=== PATIENT | female | born 1935 | race Caucasian/White ===

== ENCOUNTER 2024-07-23 03:21 | Inpatient (IN) | payer MEDICARE, SELFPAY ==
[2024-07-23] VITALS (38 sets, daily range): BP systolic 110–150; BP diastolic 61–89; PULSE 59–71; TEMP 36.1–36.9; O2SAT 90–97; BMI 17.5; BMI 17.3
--- NOTE | 2024-07-23 03:29 | ECG_ITS ---
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
--- NOTE | 2024-07-23 03:39 | ED_ITS ---
HPI HPI - General Adult General Chief complaint: Fall Time Seen by Provider: 07/23/24 03:22 Source: patient Mode of arrival: ambulance Limitations: no limitations History of Present Illness HPI narrative: 89-year-old female to the emergency department with chief complaint of multiple falls. Exact circumstances are unknown. She has a history of dementia. No blood thinner use. Patient does not provide any history. Related Data Allergies Allergy/AdvReac Type Severity Reaction Status Date / Time No Known Drug Allergies Allergy Verified 07/23/24 03:24 Opioid HPI Opioid Management Most Recent Opioid Data: Last Pain Scale 2 07/23/24 03:40 07/23/24 Review of Systems ROS Status of ROS 10 or more systems reviewed and unremark able except as noted in history and below Exam Narrative Exam Narrative: Primary Survey Airway Intact Lung sounds clear and equal bilaterally Pulses full and equal to femoral, radial, and dorsalis pedis bilaterally Heart regular rate and rhythm Skin warm, dry, pink GCS 14, confused Movement and sensation intact to all extremities Patient Fully Exposed. Tenderness about the right hip. Secondary Survey General: GCS 14, confused HEENT: Head atraumatic; Facial bones stable; Eyes normal inspection, Pupils round, 4-2mm blt; No evidence of oropharyngeal trauma; No blood in the nares or septal hematoma; Tympanic Membranes intact, no hemotympanum or drainage Neck: Normal inspection; C-collar in place; No tracheal deviation; No JVD Resp: Normal breath sounds, no wheeze or crackles; No chest wall tenderness, crepitus, or subcutaneous emphysema; No visible evidence of chest wall trauma; Chest rise symmetric; No respiratory distress Heart: Heart rate and rhythm regular; Carotid, radial, femoral, dorsalis pedis pulses +2 and equal bilaterally; No Murmurs Abdomen: Soft; Non-tender No ecchymosis or visible wounds to abdominal wall; No distention, guarding, rigidity, or rebound; Pelvis stable, no pain on compression MSK: All major joints with normal ROM. No deformities. No bony tenderness. No tenderness or step-offs to palpation of thoracic or lumbar spine; No ecchymosis or wounds to upper or lower back Neuro: Alert and oriented x1; Sensation intact and symmetric bilaterally; muscle strengths symmetric bilaterally in the upper and lower extremities. Skin: Color normal; No rash; Warm; Dry Constitutional Vital Signs, click to edit/add: Last Vital Signs Temp 98.5 F 07/23/24 03:24 Pulse 64 07/23/24 05:30 Resp 15 07/23/24 05:30 BP 125/71 07/23/24 05:30 Pulse Ox 92 L 07/23/24 05:30 O2 Del Method Room Air 07/23/24 03:24 Course Vital Signs Vital signs: Vital Signs Temperature 98.5 F 07/23/24 03:24 Pulse Rate 64 07/23/24 03:24 Respiratory Rate 14 07/23/24 03:24 Blood Pressure 110/77 07/23/24 03:24 Pulse Oximetry 97 07/23/24 03:24 Oxygen Delivery Method Room Air 07/23/24 03:24 Temperature 98.5 F 07/23/24 03:24 Pulse Rate 64 07/23/24 05:30 Respiratory Rate 15 07/23/24 05:30 Blood Pressure 125/71 07/23/24 05:30 Pulse Oximetry 92 L 07/23/24 05:30 Oxygen Delivery Method Room Air 07/23/24 03:24 Medical Decision Making [facility] Narrative Medical decision making narrative: 89-year-old female to the emergency department with chief complaint of multiple falls. Vital stable, the patient is afebrile. X-ray imaging of the right hip and pelvis is ordered. CT of the head and neck. Metabolic workup. Lab work reviewed and noted. CT head without acute findings, calcified meningioma CT cervical spine without acute findings Care was signed out to Dr. Morgan with results of urinalysis and x-ray imaging pending. Diagnoses: Multiple falls Confusion Medical Records Medical records reviewed: Yes I reviewed the patient's medical records Lab Data Lab results reviewed: Yes I reviewed the patient's lab results Labs: Lab Results 07/23/24 Range/Units 03:33 WBC 10.2 (4.0-11.0) 10^3/uL RBC 4.48 (4.20-5.40) 10^6/uL Hgb 13.6 (12.0-16.0) g/dL Hct 41.3 (36.0-48.0) % MCV 92.2 (81.0-99.0) fL MCH 30.4 (26.7-34.0) pg MCHC 32.9 (29.9-35.2) g/dL RDW 12.7 (11.0-15.0) % Plt Count 144 L (150-450) 10^3/uL MPV 11.4 (9.5-13.5) fL Neut % (Auto) 78.0 H (43.0-75.0) % Lymph % (Auto) 13.3 L (20.5-60.0) % Sumner % (Auto) 6.0 (1.7-12.0) % Eos % (Auto) 0.8 L (0.9-7.0) % Baso % (Auto) 0.3 (0.2-2.0) % Neut # (Auto) 8.0 H (1.4-6.5) 10^3/uL Lymph # (Auto) 1.4 (1.2-3.8) 10^3/uL Sumner # (Auto) 0.6 (0.3-0.8) 10^3/uL Eos # (Auto) 0.1 (0.0-0.7) 10^3/uL Baso # (Auto) 0.0 (0.0-0.1) 10^3/uL Abs Immat Gran (auto) 0.16 H (0.00-0.03) 10^3/uL Imm/Tot Granulo (auto) 1.6 H (0.0-0.5) % PT 11.0 (9.0-11.6) sec INR 1.04 APTT 23.6 (22.3-36.2) sec Sodium 137 (136-145) mmol/L Potassium 3.9 (3.5-5.1) mmol/L Chloride 101 (98-107) mmol/L Carbon Dioxide 31.2 (21.0-32.0) mmol/L Anion Gap 8.7 BUN 17.0 (7.0-18.0) mg/dL Creatinine 0.80 (0.55-1.02) mg/dL Est GFR ( Amer) >60 (>=60 mL/min/1.73m^2) Est GFR (Non-Af Amer) >60 (>=60 mL/min/1.73m^2) BUN/Creatinine Ratio 21.2 Glucose 145 H (74-106) mg/dL Calcium 9.4 (8.5-10.1) mg/dL Total Bilirubin 0.7 (0.2-1.0) mg/dL AST 17 (15-37) U/L ALT 26 (14-59) U/L Alkaline Phosphatase 65 (46-116) U/L Troponin I High Sens 6.4 (4.0-51.3) pg/mL Total Protein 6.4 (6.4-8.2) g/dL Albumin 3.4 (3.4-5.0) g/dL Globulin 3.0 g/dL Albumin/Globulin Ratio 1.1 Ethanol Quant <3 mg/dL Discharge Plan Discharge Chief Complaint: Fall Clinical Impression: Multiple falls, Acute confusion Patient Disposition: Still a Patient Print Language: Venezuelan Referrals: HAYES RICE [Primary Care Provider] - 1 week
[2024-07-23] MEDS: MORPHINE SULFATE 2 MG/ML SYRINGE IV (03:48)
[2024-07-23] MEDS: ONDANSETRON PF 4 MG/2 ML VIAL IV (03:48)
[2024-07-23 04:02] LABS: Basophils Percent Auto 0.3 % (0.2-2.0); Eosinophils Absolute Auto 0.1 10^3/uL (0.0-0.7); Eosinophils Percent Auto 0.8 % (0.9-7.0); Hematocrit 41.3 % (36.0-48.0); Hemoglobin 13.6 g/dL (12.0-16.0); Immature Granulocytes Abs Auto 0.16 10^3/uL (0.00-0.03); Immature Granulocytes Pct Auto 1.6 % (0.0-0.5); Lymphocytes Absolute Auto 1.4 10^3/uL (1.2-3.8); Lymphocytes Percent Auto 13.3 % (20.5-60.0); Mean Corpuscular HGB Conc 32.9 g/dL (29.9-35.2); Mean Corpuscular Hemoglobin 30.4 pg (26.7-34.0); Mean Corpuscular Volume 92.2 fL (81.0-99.0); Mean Platelet Volume 11.4 fL (9.5-13.5); Monocytes Absolute Auto 0.6 10^3/uL (0.3-0.8); Platelet Count 144 10^3/uL (150-450); Red Blood Count 4.48 10^6/uL (4.20-5.40); Red Cell Distribution Width 12.7 % (11.0-15.0); White Blood Count 10.2 10^3/uL (4.0-11.0)
[2024-07-23 04:04] LABS: INR 1.04; Partial Thromboplastin Time 23.6 sec (22.3-36.2)
[2024-07-23 04:09] LABS: Alanine Aminotransferase 26 U/L (14-59); Albumin Globulin Ratio 1.1; Albumin Level 3.4 g/dL (3.4-5.0); Alkaline Phosphatase 65 U/L (46-116); Anion Gap 8.7; Aspartate Amino Transferase 17 U/L (15-37); BUN Creatinine Ratio 21.2; Bilirubin Total 0.7 mg/dL (0.2-1.0); Calcium 9.4 mg/dL (8.5-10.1); Carbon Dioxide 31.2 mmol/L (21.0-32.0); Chloride 101 mmol/L (98-107); Estimated GFR (African America >60 (>=60 mL/min/1.73m^2); Estimated GFR (Non-African Ame >60 (>=60 mL/min/1.73m^2); Glucose 145 mg/dL (74-106); Potassium 3.9 mmol/L (3.5-5.1); Sodium 137 mmol/L (136-145); Total Protein 6.4 g/dL (6.4-8.2); Troponin I High Sensitivity 6.4 pg/mL (4.0-51.3)
[2024-07-23 04:25] LABS: Ethanol <3 mg/dL
--- NOTE | 2024-07-23 10:23 | P.HP_ITS ---
HPI H&P: HPI History of Present Illness Narrative: Patient was a mechanical fall, actually happened twice, and then with the pain being more severe presented to the emergency room, x-rays in the emergency room showed iliac fracture as well as right pubic ramus fracture, patient unable to ambulate secondary to these and will be admitted for workup and treatment of same When I saw patient in the emergency room, she was resting fairly comfortably in bed she is a little bit hard of hearing Opioid HPI Opioid Management Most Recent Pain and Opioid Data: Last Pain Scale 2 07/23/24 03:40 07/23/24 [facility] Medical History (Updated 07/23/24 @ 07:57 by Jim Diaz RN) Anxiety and depression ?F41.9 - Anxiety disorder, unspecified (ICD-10) ?F32.A - Depression, unspecified (ICD-10) Alzheimer disease ?G30.9 - Alzheimer's disease, unspecified (ICD-10) ?F02.80 - Dementia in other diseases classified elsewhere, unspecified severity, without behavioral disturbance, psychotic disturbance, mood disturbance, and anxiety (ICD-10) Meds Home Medications and Allergies Home Medications ?Medication ?Instructions ?Recorded ?Confirmed ?Type donepezil 10 mg tablet 10 mg PO DAILY 07/23/24 07/23/24 History escitalopram oxalate 10 mg tablet 10 mg PO DAILY 07/23/24 07/23/24 History latanoprost 0.005 % eye drops 1 drp ophthalmic (eye) DAILY 07/23/24 07/23/24 History timolol maleate 0.5 % eye drops 1 drp ophthalmic (eye) Q12H 07/23/24 07/23/24 History Allergies Allergy/AdvReac Type Severity Reaction Status Date / Time No Known Drug Allergies Allergy Verified 07/23/24 03:24 Exam Constitutional Vital Signs, click to edit/add: Last Vital Signs Temp 98.5 F 07/23/24 03:24 Pulse 61 07/23/24 09:20 Resp 20 07/23/24 09:20 BP 113/67 07/23/24 09:00 Pulse Ox 90 L 07/23/24 09:20 O2 Del Method Room Air 07/23/24 03:24 Documenting provider has reviewed patient's vital signs: yes Common normals: no apparent distress Chest Common normals: inspection of chest normal Respiratory Common normals: normal respiratory effort and no retractions Cardio Common normals: regular rate and regular rhythm GI Common normals: Normal to inspection, nondistended, normoactive bowel sounds present Extremity Common normals: normal to inspection and no clubbing, cyanosis or edema Results Labs Labs: Short CBC 07/23/24 Range/Units 03:33 WBC 10.2 (4.0-11.0) 10^3/uL Hgb 13.6 (12.0-16.0) g/dL Hct 41.3 (36.0-48.0) % Plt Count 144 L (150-450) 10^3/uL BMP 07/23/24 03:33 Sodium 137 Potassium 3.9 Chloride 101 Carbon Dioxide 31.2 BUN 17.0 Creatinine 0.80 Glucose 145 H Calcium 9.4 Liver Function 07/23/24 Range/Units 03:33 Total Bilirubin 0.7 (0.2-1.0) mg/dL AST 17 (15-37) U/L ALT 26 (14-59) U/L Alkaline Phosphatase 65 (46-116) U/L Albumin 3.4 (3.4-5.0) g/dL Assessment and Plan Assessment and Plan (1) Acute confusion: (2) Multiple falls: Plan Admission findings: Right iliac fracture as well as right pubic ramus fracture, unable to ambulate, admit for workup and evaluation for cause of fall, possible syncope Iliac fracture as well as right pubic ramus fracture-nonweightbearing today, PT and orthopedic evaluation tomorrow 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 Inpatient status
[2024-07-23 10:44] LABS: Magnesium 1.9 mg/dL (1.8-2.4)
[2024-07-23 12:10] LABS: Bilirubin Urine NEGATIVE (NEGATIVE); Blood Urine NEGATIVE (NEGATIVE); Clarity Urine CLEAR (CLEAR); Color Urine YELLOW (YELLOW); Glucose Urine UA NEGATIVE (NEGATIVE); Ketones Urine NEGATIVE (NEGATIVE); Leukocyte Esterase Urine NEGATIVE (NEGATIVE); Nitrite Urine NEGATIVE (NEGATIVE); Protein Urine NEGATIVE (NEG/TRACE); Specific Gravity Urine 1.015 (1.005-1.025); pH Urine 6.5 (5.0-9.0)
[2024-07-23 12:15] LABS: Bacteria Urine TRACE #/HPF (NONE SEEN); RBC Urine 0-2 #/HPF (0-2); WBC Urine 0-2 #/HPF (NONE SEEN)
[2024-07-23 12:16] LABS: Cast Seen? NONE SEEN #/LPF (NONE SEEN); Crystals Seen? None Seen #/HPF (None Seen); Mucus Urine TRACE (NONE SEEN); Squamous Epithelial Cell Urine NONE SEEN #/LPF (NONE/RARE); Urine Culture Indicated ALREADY ORDERED
[2024-07-23] MEDS: TRAMADOL HCL 50 MG TABLET PO (13:23)
[2024-07-23] MEDS: ACETAMINOPHEN 500 MG TABLET 1000 MG PO (13:23)
[2024-07-23] MEDS: TIMOLOL MALEATE 0.5% OP SOL 100 DROPS/5 ML BOTTLE 1 DROP OP (13:26)
--- NOTE | 2024-07-23 14:34 | PC.NURSE ---
Director Of Curriculum has been unable to obtain history. Director Of Curriculum has attempted to call family several times and has left voicemail but no one has returned call. Grandson was at bedside and gave phone numbers but still unable to get any answers.
[2024-07-24] VITALS (10 sets, daily range): BP systolic 123–147; BP diastolic 65–73; PULSE 59–100; TEMP 36.3–36.9; O2SAT 87–93
[2024-07-24 06:40] LABS: Basophils Percent Auto 0.5 % (0.2-2.0); Eosinophils Absolute Auto 0.2 10^3/uL (0.0-0.7); Eosinophils Percent Auto 3.4 % (0.9-7.0); Hematocrit 41.3 % (36.0-48.0); Hemoglobin 13.6 g/dL (12.0-16.0); Immature Granulocytes Abs Auto 0.01 10^3/uL (0.00-0.03); Immature Granulocytes Pct Auto 0.2 % (0.0-0.5); Mean Corpuscular HGB Conc 32.9 g/dL (29.9-35.2); Mean Corpuscular Hemoglobin 30.6 pg (26.7-34.0); Monocytes Absolute Auto 0.5 10^3/uL (0.3-0.8); Neutrophils Absolute Auto 3.8 10^3/uL (1.4-6.5); Neutrophils Percent Auto 57.9 % (43.0-75.0); Platelet Count 129 10^3/uL (150-450); Red Blood Count 4.44 10^6/uL (4.20-5.40); Red Cell Distribution Width 13.1 % (11.0-15.0); White Blood Count 6.5 10^3/uL (4.0-11.0)
[2024-07-24 06:53] LABS: Anion Gap 7.2; BUN Creatinine Ratio 19.1; Calcium 9.2 mg/dL (8.5-10.1); Carbon Dioxide 31.9 mmol/L (21.0-32.0); Chloride 103 mmol/L (98-107); Estimated GFR (African America >60 (>=60 mL/min/1.73m^2); Estimated GFR (Non-African Ame >60 (>=60 mL/min/1.73m^2); Glucose 114 mg/dL (74-106); Potassium 4.1 mmol/L (3.5-5.1); Sodium 138 mmol/L (136-145)
[2024-07-24 07:09] LABS: Creatine Kinase 38 U/L (26-192)
--- NOTE | 2024-07-24 07:11 | P.PN_ITS ---
Progress Note: Subjective Subjective Interval history: Patient awake and alert this morning, no cough denies shortness of breath but is hypoxic Exam Constitutional Vital Signs, click to edit/add: Last Vital Signs Temp 97.8 F 07/24/24 04:00 Pulse 59 L 07/24/24 04:00 Resp 18 07/24/24 04:00 BP 147/67 H 07/24/24 04:00 Pulse Ox 93 L 07/24/24 04:15 O2 Del Method Room Air 07/24/24 04:15 Documenting provider has reviewed patient's vital signs: yes Common normals: no apparent distress Lymph Lymphatic: no lymphadenopathy noted Chest Common normals: inspection of chest normal Respiratory Common normals: normal respiratory effort, no retractions and clear to auscultation bilaterally Cardio Common normals: regular rate and regular rhythm Extremity Common normals: normal to inspection and no clubbing, cyanosis or edema Progress Note: Objective Labs Labs: Short CBC 07/24/24 Range/Units 06:33 WBC 6.5 (4.0-11.0) 10^3/uL Hgb 13.6 (12.0-16.0) g/dL Hct 41.3 (36.0-48.0) % Plt Count 129 L (150-450) 10^3/uL BMP 07/24/24 06:33 Sodium 138 Potassium 4.1 Chloride 103 Carbon Dioxide 31.9 BUN 13.0 Creatinine 0.68 Glucose 114 H Calcium 9.2 Cardiac Enzymes 07/24/24 Range/Units 06:33 Total Creatine Kinase 38 (26-192) U/L Urine 07/23/24 Range/Units 11:50 Urine Color Yellow (YELLOW) Urine Clarity Clear (CLEAR) Urine pH 6.5 (5.0-9.0) Ur Specific [place] 1.015 (1.005-1.025) Urine Protein Negative (NEG/TRACE) mg/dL Urine Glucose (UA) Negative (NEGATIVE) mg/dL Progress Note: A&P Assessment and Plan (1) Acute confusion: (2) Multiple falls: Plan Admission findings: Right iliac fracture as well as right pubic ramus fracture, unable to ambulate, admit for workup and evaluation for cause of fall, possible syncope Iliac fracture as well as right pubic ramus fracture-orthopedics to see today Acute hypoxia-check chest x-ray, start PEP therapy, no cough or no shortness of breath would hold off on CT scans unless hypoxia persist, chest x-ray pending Alzheimer's type dementia-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 Inpatient status ?
--- NOTE | 2024-07-24 08:29 | CM.NOTE ---
Rounds made with Dr. Milan, RN at bedside for vitals. RN reports to Dr. Milan, pt's hypoxia on RA (02 sat-86%). Dr. Milan discussed order to keep sat greater than 90% and Pep device. Orthopedic consult for further recommendations.
[2024-07-24] MEDS: TRAMADOL HCL 50 MG TABLET PO ×3 (08:43→21:53)
[2024-07-24] MEDS: ESCITALOPRAM 10 MG TABLET PO (08:44)
[2024-07-24] MEDS: ACETAMINOPHEN 500 MG TABLET 1000 MG PO ×2 (08:44→16:42)
[2024-07-24] MEDS: PREDNISONE 5 MG TABLET 1.25 MG PO (08:44)
[2024-07-24] MEDS: ENOXAPARIN SODIUM 40 MG/0.4 ML SYRINGE SUBQ (09:26)
--- NOTE | 2024-07-24 10:56 | SWNOTE1 ---
Important Message from Medicare reviewed and discussed with patient.'s son in law. Pt's son in law verbalized understanding and SW signed the form that it was reviewed. Original placed in pt's room and copy placed in patient?s chart.
[2024-07-24] MEDS: TIMOLOL MALEATE 0.5% OP SOL 100 DROPS/5 ML BOTTLE 1 DROP OP ×2 (11:06→22:00)
--- NOTE | 2024-07-24 11:25 | SWNOTE1 ---
Pt has some confusion/Dementia. ESSENCE called and spoke to pt's son in law. Pt lives at home with her daughter and son in law. Per the son in law pt usually uses a 4 prong cane. She is in and out of confusion. Pt has never been to rehab at facility before, just has had in home therapy. ESSENCE spoke to son in law about possibility of pt needing rehab for a short time to get stronger and due to pelvic fractures. ESSENCE explained how Medicare works and needing a qualifying 3 day inpt stay. He voiced understanding. He is going to have pt's daughter call SW to discuss in further detail.
--- NOTE | 2024-07-24 13:29 | PM.ORCN ---
History of Present Illness HPI Consult date: 07/24/24 Requesting physician: Chava Milan Chief complaint: FALL MULTIPLE PELVIC FRACTURES Narrative: Patient is a 89-year-old female with past medical history of Alzheimer's and hypertension that presented to the ED yesterday after apparent multiple falls and patient would not ambulate. CT scan of the pelvis revealed multiple right-sided pelvic fractures. Patient was admitted for altered mental status, pelvic fractures, pain control, and disposition. Ortho was consulted for patient's right inferior pubic rami and iliac wing fractures. Patient unable to provide history, family not at bedside. [facility] Medical History (Updated 07/24/24 @ 13:30 by WILL Lowe) High blood pressure ?I10 - Essential (primary) hypertension (ICD-10) Anxiety and depression ?F41.9 - Anxiety disorder, unspecified (ICD-10) ?F32.A - Depression, unspecified (ICD-10) Alzheimer disease ?G30.9 - Alzheimer's disease, unspecified (ICD-10) ?F02.80 - Dementia in other diseases classified elsewhere, unspecified severity, without behavioral disturbance, psychotic disturbance, mood disturbance, and anxiety (ICD-10) Family History (Updated 07/23/24 @ 19:33 by Kayy Sagastume) Son No problems noted. Father Family history of myocardial infarction Social History (Updated 07/23/24 @ 19:34 by Kayy Sagastume) Within the past year, how often did you have a drink containing alcohol: never Score interpretation: A score less than 3 is consistent with normal alcohol consumption. Smoking status: Former smoker Non-prescribed substance use: denies use Previous occupational history: retired Highest level of school completed/degree received: 5th grade Are you now , , , , never or living with a partner: In a typical week, how many times do you talk on the telephone with family, friends, or neighbors: 3 or more times per week How often do you get together with friends or relatives: 3 or more times per week Little interest or pleasure in doing things: not at all Feeling down, depressed, or hopeless: not at all Feel stressed/tense/nervous/anxious/difficulty sleeping: not at all Do you think of yourself as: straight/heterosexual Gender Identity: female Meds Home Medications and Allergies Home Medications ?Medication ?Instructions ?Recorded ?Confirmed ?Type donepezil 10 mg tablet 10 mg PO .hs 07/23/24 07/24/24 History escitalopram oxalate 10 mg tablet 10 mg PO DAILY 07/23/24 07/23/24 History latanoprost 0.005 % eye drops 1 drp ophthalmic (eye) DAILY 07/23/24 07/23/24 History timolol maleate 0.5 % eye drops 1 drp ophthalmic (eye) Q12H 07/23/24 07/23/24 History calcium 600 mg (as 1 tab PO DAILY 07/24/24 07/24/24 History carbonate)-vitamin D3 5 mcg (200 unit) tablet (Calcium 600 + D(3)) cranberry 500 mg capsule 500 mg PO DAILY 07/24/24 07/24/24 History prednisone 2.5 mg tablet 1.25 mg PO DAILY 07/24/24 07/24/24 History Allergies Allergy/AdvReac Type Severity Reaction Status Date / Time No Known Drug Allergies Allergy Verified 07/23/24 03:24 Exam Narrative Exam Narrative: On exam patient is in no distress, laying in the hospital bed, and alert. Patient oriented to name and but not place, date, or age. Skin is intact, no erythema or warmth to touch. Right thigh and calf compartments soft and compressible. Negative log roll. Full ROM of Right Hip, Knee, Ankle. Wiggles toes. 5/5 strength dorsiflexion/ plantarflexion. Sensation intact distally with light touch. 2+ DP pulses palpated bilaterally. Constitutional Vital Signs, click to edit/add: Last Vital Signs Temp 97.4 F L 07/24/24 11:03 Pulse 63 07/24/24 11:03 Resp 18 07/24/24 11:03 BP 123/66 07/24/24 11:06 Pulse Ox 90 L 07/24/24 11:03 O2 Del Method Room Air 07/24/24 11:03 Results Labs Labs: Abnormal lab results 07/24/24 Range/Units 06:33 Plt Count 129 L (150-450) 10^3/uL Glucose 114 H (74-106) mg/dL H & H 07/23/24 07/24/24 Range/Units 03:33 06:33 Hgb 13.6 13.6 (12.0-16.0) g/dL Hct 41.3 41.3 (36.0-48.0) % Coagulation 07/23/24 Range/Units 03:33 INR 1.04 All other labs normal. Assessment and Plan Assessment and Plan (1) Acute confusion: (2) Multiple falls: (3) Pelvic fracture: Assessment and Plan: Right inferior pubic rami fracture, right iliac wing fracture CT pelvis without contrast was reviewed that reveals an acute oblique fracture involving the mid segment of the right inferior pubic ramus without displacement. - Acute nondisplaced fracture involving the posterior aspect of the right iliac wing involving the medial cortical margin just lateral to the right SI joint. - Recommend protected WBAT with walker - Pain control per Hospitalist - PT/ OT eval-per therapist patient did really well with ambulation up and down the [place], has not had pain medication other than Tylenol this morning - Will treat non operatively, if patient did have issues ambulating with uncontrolled pain could consider transfer to a trauma center for an Iliosacral screw Discussed with my Supervising Physician, Dr Barker. Qualifiers: Encounter type: initial encounter Fracture alignment: without disruption of pelvic ring Fracture type: closed Pelvic bone location: multiple parts Qualified Code(s): S32.82XA - Multiple fractures of pelvis without disruption of pelvic ring, initial encounter for closed fracture
--- NOTE | 2024-07-24 15:05 | SWNOTE1 ---
Pt did work with therapy and did well, still recomemending SNF due to pt's cognition. SW called pt's son in law, he was just arriving to hospital. SW to talk to him in room.
--- NOTE | 2024-07-24 15:41 | SWNOTE1 ---
ESSENCE had a lengthy discussion with pt, pt's daughter, and pt's son in law in regards to pt's discharge plans. There residential goal is to take pt back home. They do want pt to go to short term rehab to get stronger. Pt's son in law voiced that his concern with her going home now is that she may have went 40 feet with therapy, but tomorrow she may only go 2 feet. Concerns about her falling again. ESSENCE did advise family that at the facilities they are not allowed to have bed alarms as that is considered a restraint. They voiced understanding. SW also advised them that a fall could happen anywhere. They voiced understanding. SW did let them know SW is not sure how long she will be skilled for, whether it is a few days or 3 weeks. It will depend on when pt meets her goals. They voiced understanding. They informed pt that she will need to go to rehab and go to the gym to work out everyday to get stronger. Pt smiled and laughed. They did ask if pt could get rehab here at hospital. ESSENCE advised that we don't have swing beds here and that she will get therapy until she transitions to SNF. They voiced understanding. They would like SW to look in to [facility]. They are going to drive by [facility] this evening and then SW will touch base with them in the morning. ESSENCE sent referral to [facility].
[2024-07-24] MEDS: LATANOPROST 0.005% 2.5 ML BOTTLE 1 DROP OP (21:53)
[2024-07-24] MEDS: DONEPEZIL HCL 10 MG TABLET PO (21:53)
[2024-07-25] VITALS (8 sets, daily range): BP systolic 131–168; BP diastolic 79–87; PULSE 55–78; TEMP 36.2–36.9; O2SAT 91–95
[2024-07-25 03:26] LABS: Bilirubin Urine NEGATIVE (NEGATIVE); Blood Urine TRACE-I (NEGATIVE); Clarity Urine CLEAR (CLEAR); Color Urine LT. YELLOW (YELLOW); Glucose Urine UA NEGATIVE (NEGATIVE); Ketones Urine NEGATIVE (NEGATIVE); Leukocyte Esterase Urine TRACE (NEGATIVE); Nitrite Urine NEGATIVE (NEGATIVE); Protein Urine NEGATIVE (NEG/TRACE); Specific Gravity Urine 1.015 (1.005-1.025); Urobilinogen Urine 0.2 EU/dL (0.2-1.0); pH Urine 5.5 (5.0-9.0)
[2024-07-25] MEDS: TRAMADOL HCL 50 MG TABLET PO (04:39)
--- NOTE | 2024-07-25 06:31 | P.PN_ITS ---
Progress Note: Subjective Subjective Interval history: No plaints this morning, more awake than yesterday Exam Constitutional Vital Signs, click to edit/add: Last Vital Signs Temp 97.5 F L 07/25/24 04:00 Pulse 55 L 07/25/24 04:00 Resp 17 07/25/24 04:00 BP 160/80 H 07/25/24 04:00 Pulse Ox 93 L 07/25/24 04:00 O2 Del Method Room Air 07/25/24 04:00 Documenting provider has reviewed patient's vital signs: yes Common normals: no apparent distress Lymph Lymphatic: no lymphadenopathy noted Chest Common normals: inspection of chest normal Respiratory Common normals: normal respiratory effort and no retractions Cardio Common normals: regular rate, regular rhythm and no murmurs Extremity Common normals: normal to inspection and no clubbing, cyanosis or edema Progress Note: Objective Labs Labs: Short CBC 07/24/24 Range/Units 06:33 WBC 6.5 (4.0-11.0) 10^3/uL Hgb 13.6 (12.0-16.0) g/dL Hct 41.3 (36.0-48.0) % Plt Count 129 L (150-450) 10^3/uL BMP 07/24/24 06:33 Sodium 138 Potassium 4.1 Chloride 103 Carbon Dioxide 31.9 BUN 13.0 Creatinine 0.68 Glucose 114 H Calcium 9.2 Cardiac Enzymes 07/24/24 Range/Units 06:33 Total Creatine Kinase 38 (26-192) U/L Urine 07/25/24 Range/Units 03:00 Urine Color Lt. yellow (YELLOW) Urine Clarity Clear (CLEAR) Urine pH 5.5 (5.0-9.0) Ur Specific [place] 1.015 (1.005-1.025) Urine Protein Negative (NEG/TRACE) mg/dL Urine Glucose (UA) Negative (NEGATIVE) mg/dL Progress Note: A&P Assessment and Plan (1) Acute confusion: (2) Multiple falls: (3) Pelvic fracture: Qualifiers: Encounter type: initial encounter Fracture alignment: without disruption of pelvic ring Fracture type: closed Pelvic bone location: multiple parts Qualified Code(s): S32.82XA - Multiple fractures of pelvis without disruption of pelvic ring, initial encounter for closed fracture Plan Admission findings: Right iliac fracture as well as right pubic ramus fracture, unable to ambulate, admit for workup and evaluation for cause of fall, possible syncope Iliac fracture as well as right pubic ramus fracture-able to do weightbearing as tolerated, patient can to be very unsteady with gait secondary to pain will require rehabilitation Acute hypoxia-chest x-ray clear, no cough or shortness of breath today Alzheimer's type dementia-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 Inpatient status ?
--- NOTE | 2024-07-25 08:44 | CM.NOTE ---
Rounds made with Dr. Milan, pt will discharge to skilled facility when medically stable. Referral has been sent to [facility].
[2024-07-25] MEDS: ESCITALOPRAM 10 MG TABLET PO (09:59)
[2024-07-25] MEDS: PREDNISONE 5 MG TABLET 1.25 MG PO (09:59)
[2024-07-25] MEDS: ENOXAPARIN SODIUM 40 MG/0.4 ML SYRINGE SUBQ (10:03)
--- NOTE | 2024-07-25 10:19 | SWNOTE1 ---
SW called pt's son in law to discuss discharge planning. SW let him know that the [facility] does have an opening. He voiced they did not have a chance to drive by [facility] as his was not feeling well. They did go past [facility] and at this time they want to stick with [facility]. He stated they will be here in about an hour and half. SW to stop in room once they arrive to see if they have further questions.
--- NOTE | 2024-07-25 10:46 | PT.DAILY ---
Physical Therapy Daily Note PT Daily Note/Assess Start: 07/25/24 10:40 Freq: Status: Active Protocol: Document 07/25/24 10:05 INDIRA (Rec: 07/25/24 10:46 INDIRA [id number]) Physical Therapy Daily Note/Assessment Time In/Time Out Time In 10:05 Time Out 10:21 Subjective Subjective Patient is very pleasant, confused and max verbal cues to keep on task. Therapeutic Exercise Time Therapeutic Exercise 5 Minutes (minutes) Therapeutic Exercise 0 Units Therapeutic Exercise Treatment Therapeutic Exercise Seated exercises B LE all planes as patient follows Treatment directions. Therapeutic Activity Time Therapeutic Activity 11 Minutes (minutes) Therapeutic Activity 1 Units Therapeutic Activity Treatment Bed Mobility Ability Standby Assistance Chair Transfer Minimum Assist Ability Therapeutic Activity Patient requires assistance due to poor safety Comments awareness. WBAT with RW but patient does not want to use RW and keeps trying to put it off to side, max verbal cues to use RW and assistance to keep RW in front of her. Gait 25' today and limited more due to poor safety awareness with using RW. Total Physical Therapy Time Total Therapy 16 Minutes Total Physical 1 Therapy Units Summary Daily Note Summary Poor safety with use of RW, requires mod assistance to properly use RW during gait. Patient is antalgic with gait pattern and rubs hip once complaining of pain prior to sitting in chair. Patient in chair with alarm placed, table in front of her, call light in reach and all needs met.
[2024-07-25] MEDS: TIMOLOL MALEATE 0.5% OP SOL 100 DROPS/5 ML BOTTLE 1 DROP OP ×2 (11:57→22:10)
--- NOTE | 2024-07-25 14:51 | SWNOTE1 ---
SW stopped in to speak with daughter and son in law. They voiced they just stopped over at [facility] and did a tour and loved it. Pt's room will be next to nurses station. SW did ask them about transport. They did not feel by car would be safest due to fractures and [facility] does not have transport. Pt's daughter and son in law agree for trips to transport. They requested early afternoon as pt's daughter has apt at 11:30 in [place]. SW to call trips. SW called and set up trips for 1-1:30. SW notified nurse, pt's daughter and son in law, and [facility] of time.
[2024-07-25] MEDS: LATANOPROST 0.005% 2.5 ML BOTTLE 1 DROP OP (22:10)
[2024-07-25] MEDS: DONEPEZIL HCL 10 MG TABLET PO (22:10)
[2024-07-26] VITALS: BP 160/74; PULSE 62; TEMP 37.1; O2SAT 91
[2024-07-26 03:24] VITALS: BP 160/79; PULSE 65; TEMP 37; O2SAT 90
--- NOTE | 2024-07-26 07:19 | P.DS_ITS ---
DS: Providers Provider Date of admission: 07/23/24 10:31 Primary care physician: HAYES RICE Consults: 07/23/24 10:30 Occupational Therapy Eval and Treat Routine Reason for consultation: Only if needed for Rehab Has provider been notified: No Physical Therapy Eval and Treat Routine Reason for consultation: Eval and Treat Has provider been notified: No 07/23/24 10:34 Consult to Orthopedic Surgery Routine Consulting Provider: Jacob Ferrara Reason For Exam: Reason for consultation: iliac and pubic ramus fx Has provider been notified: No DS: Diagnosis Discharge Diagnosis (1) Acute confusion: (2) Multiple falls: (3) Pelvic fracture: Qualifiers: Encounter type: initial encounter Fracture alignment: without disruption of pelvic ring Fracture type: closed Pelvic bone location: multiple parts Qualified Code(s): S32.82XA - Multiple fractures of pelvis without disruption of pelvic ring, initial encounter for closed fracture Plan Admission findings: Right iliac fracture as well as right pubic ramus fracture, unable to ambulate, admit for workup and evaluation for cause of fall, possible syncope Iliac fracture as well as right pubic ramus fracture-able to do weightbearing as tolerated, patient can to be very unsteady with gait secondary to pain will require rehabilitation Acute hypoxia-chest x-ray clear, no cough or shortness of breath today Alzheimer's type dementia-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 Inpatient status ? ? DS: Summary Hospital Course Hospital Course: Patient sustained a fall resulting in pubic ramus fracture and iliac crest fracture, workup for syncope for the cause of the fall was unremarkable, she did have episode of hypoxia requiring supplemental oxygen but that is improved and may be related to pain medications at this point she is medically stable for discharge to rehab. Medications see list. Follow-up with PCP postdischarge from rehab Status at Discharge Overall status at discharge: patient is not back to baseline Time Spent with Patient Time attestation: Total time spent providing and/or coordinating discharge services: Time spent: greater than 30 minutes Exam Constitutional Vital Signs, click to edit/add: Last Vital Signs Temp 98.6 F 07/26/24 03:24 Pulse 65 07/26/24 03:24 Resp 20 07/26/24 03:24 BP 160/79 H 07/26/24 03:24 Pulse Ox 90 L 07/26/24 03:24 O2 Del Method Room Air 07/26/24 03:24 Documenting provider has reviewed patient's vital signs: yes Common normals: no apparent distress Lymph Lymphatic: no lymphadenopathy noted Chest Common normals: inspection of chest normal Respiratory Common normals: normal respiratory effort and no retractions Cardio Common normals: regular rate, regular rhythm and no murmurs Extremity Common normals: normal to inspection and no clubbing, cyanosis or edema Discharge Plan Discharge Disposition: Xfer [facility] Discharge Medications: New tramadol 50 mg tablet 50 mg PO Q6H PRN (Reason: pain) Qty: 30 2RF Continued donepezil 10 mg tablet 10 mg PO .hs escitalopram oxalate 10 mg tablet 10 mg PO DAILY latanoprost 0.005 % drops 1 drp OPHTHALMIC (EYE) DAILY timolol maleate 0.5 % drops 1 drp OPHTHALMIC (EYE) Q12H prednisone 2.5 mg tablet 1.25 mg PO DAILY calcium carbonate-vitamin D3 [Calcium 600 + D(3)] 600 mg-5 mcg (200 unit) tablet 1 tab PO DAILY cranberry 500 mg capsule 500 mg PO DAILY Rx Instructions: administer with a meal Print Language: Yoruba [employer] Wheel Alignment Specialist/Constitutional Law Professor Instructions: Discharge to [facility] skilled Forms: Portal Instructions Discharge Date/Time: 07/26/24 12:55 Discharge Location: [facility]
[2024-07-26 08:19] VITALS: PULSE 65
[2024-07-26 08:30] VITALS: BP 154/76; PULSE 65; TEMP 37.2; O2SAT 95
[2024-07-26] MEDS: ENOXAPARIN SODIUM 40 MG/0.4 ML SYRINGE SUBQ (08:49)
[2024-07-26] MEDS: PREDNISONE 5 MG TABLET 1.25 MG PO (08:49)
[2024-07-26] MEDS: ACETAMINOPHEN 500 MG TABLET 1000 MG PO (08:49)
[2024-07-26] MEDS: TRAMADOL HCL 50 MG TABLET PO (08:50)
[2024-07-26] MEDS: ESCITALOPRAM 10 MG TABLET PO (08:50)
--- NOTE | 2024-07-26 08:58 | CM.NOTE ---
Rounds made with Dr. Milan, pt will discharge to [facility] today for skilled therapy.
--- NOTE | 2024-07-26 10:21 | SWNOTE1 ---
SW called [facility] to see if daughter could ride along due to pt's confusion, [facility] is alright with this. SW sent dc med rec and updated vitals to [facility]. SW completed HENS. SW took packet to the floor. [facility] is set for 1-1:30, pt is going to [facility] skilled.
[2024-07-26 10:57] LABS: Glucometer 167 mg/dL (74-106)
[2024-07-26 11:03] VITALS: BP 154/76; PULSE 59; TEMP 36.9; O2SAT 90
[2024-07-26] MEDS: TIMOLOL MALEATE 0.5% OP SOL 100 DROPS/5 ML BOTTLE 1 DROP OP (11:03)
--- NOTE | 2024-07-26 11:41 | PT.DAILY ---
Physical Therapy Daily Note PT Daily Note/Assess Start: 07/25/24 10:40 Freq: Status: Active Protocol: Document 07/26/24 11:35 NELSON (Rec: 07/26/24 11:41 NELSON [id number]) Physical Therapy Daily Note/Assessment Time In/Time Out Time In 11:25 Time Out 11:34 Pain In Pain N/A Pain Out Pain N/A Subjective Subjective Pt supine upon arrival. Pleasantly confused. Planned dc 1300 to [facility]. Therapeutic Activity Time Therapeutic Activity 8 Minutes (minutes) Therapeutic Activity 1 Units Therapeutic Activity Treatment Bed Mobility Ability Independent Chair Transfer Standby Assistance Ability Therapeutic Activity Supine>sit IND. Sit>stand SBA for safety. Pt amb with Comments RW around room 45' with constant cuing for walker safety/proper negotiation. Pt needs outside assistance to negotiate walker safely around room. Pt remains in BS chair upon completion with call light in reach and chair alarm set. Total Physical Therapy Time Total Therapy 8 Minutes Total Physical 1 Therapy Units Summary Daily Note Summary Improved gait endurance but cont to be confused and need assistance with RW for safety.
[2024-07-26 12:02] VITALS: O2SAT 90
== END 2024-07-26 12:55 | DRG 536 ==
LOC: ER 06:55 → MS 11:00
PROVIDERS: Admitting Provider Family Medicine; Emergency Provider Student in an Organized Health Care Education/Training Program; PCP Family Medicine; Visit Provider Family Medicine
DX: S32.82XA Multiple fractures of pelvis without disruption of pelvic ring, initial encounter for closed fracture (principal); G30.9 Alzheimer's disease, unspecified; F02.80 Dementia in other diseases classified elsewhere, unspecified severity, without behavioral disturbance, psychotic disturbance, mood disturbance, and anxiety; R55 Syncope and collapse; R09.02 Hypoxemia; R41.0 Disorientation, unspecified; F41.1 Generalized anxiety disorder; D69.6 Thrombocytopenia, unspecified; I10 Essential (primary) hypertension; R73.9 Hyperglycemia, unspecified; F32.A Depression, unspecified; M16.11 Unilateral primary osteoarthritis, right hip; Z79.899 Other long term (current) drug therapy; W19.XXXA Unspecified fall, initial encounter; R29.6 Repeated falls; Z87.891 Personal history of nicotine dependence
CPT/HCPCS: 36415; 70450; 71045; 72125; 73502; 73700; 80048; 80053; 80320; 81001; 81003; 82550; 83735; 84484; 85025; 85610; 85730; 87086; 93005; 94667; 94668; 94761; 96374; 96375; 97161; 97165; 97530; 97535; 99285; J1650; J2270; J2405; J7512

== ENCOUNTER 2024-08-25 12:59 | Outpatient (REF) | payer MEDICARE, SELFPAY ==
[2024-08-25 13:10] LABS: Bilirubin Urine NEGATIVE (NEGATIVE); Blood Urine NEGATIVE (NEGATIVE); Clarity Urine CLEAR (CLEAR); Color Urine LT. YELLOW (YELLOW); Glucose Urine UA NEGATIVE (NEGATIVE); Ketones Urine NEGATIVE (NEGATIVE); Leukocyte Esterase Urine NEGATIVE (NEGATIVE); Nitrite Urine NEGATIVE (NEGATIVE); Protein Urine NEGATIVE (NEG/TRACE); Specific Gravity Urine 1.015 (1.005-1.025); Urobilinogen Urine 0.2 EU/dL (0.2-1.0); pH Urine 7.5 (5.0-9.0)
[2024-08-25 13:12] LABS: Urine Microscopic Indicated NO
== END 2024-08-25 13:00 | disposition home or self-care (01) ==
LOC: LAB 12:59
PROVIDERS: PCP Family Medicine; Visit Provider Family Medicine
DX: R30.0 Dysuria (principal); R35.0 Frequency of micturition
CPT/HCPCS: 81003